=== PATIENT | female | born 1985 ===

== ENCOUNTER 2017-01-22 12:22 | Emergency (ER) | payer MEDICAID, OTHER ==
[2017-01-22 12:34] VITALS: BMI 24.8
[2017-01-22 12:35] VITALS: TEMP 100.1
--- NOTE | 2017-01-22 13:02 | ED PDOC ---
Arrival/HPI - General Historian: Patient - General Chief Complaint: ENT Problem Time Seen by Provider: 01/22/17 12:43 - History of Present Illness Narrative History of Present Illness (Text): 01/22/17 12:58 31yo female present with complaint of sore throat and nasal congestion since last night. Denies fever but had a low grade temp in triage. Denies drooling, hoarseness, neck pain, ear pain, nausea, vomiting, cough, any other complaint. ( Sissy Goodwin A) Past Medical History - Provider Review Nursing Documentation Reviewed: Yes - Infectious Disease Hx of Infectious Diseases: None - Psychiatric Hx Substance Use: No - Anesthesia Hx Anesthesia: No Hx Anesthesia Reactions: No Hx Malignant Hyperthermia: No - Suicidal Assessment Feels Threatened In Home Enviroment: No Family/Social History - Physician Review Nursing Documentation Reviewed: Yes Family/Social History: Unknown Family HX Smoking Status: Current Some Days Smoker Hx Alcohol Use: No Hx Substance Use: No Allergies/Home Meds Allergies/Adverse Reactions: Allergies No Known Allergies Allergy (Verified 01/22/17 12:34) Review of Systems - Physician Review All systems were reviewed & negative as marked: Yes - Review of Systems Constitutional: Normal Eyes: Normal ENT: Sore Throat, Sinus Congestion Respiratory: Normal Cardiovascular: Normal Gastrointestinal: Normal Genitourinary Female: Normal Musculoskeletal: Normal Skin: Normal Neurological: Normal Endocrine: Normal Hemo/Lymphatic: Normal Psychiatric: Normal Physical Exam Vital Signs Reviewed: Yes Temperature: Febrile Blood Pressure: Normal Pulse: Regular Respiratory Rate: Normal Appearance: Positive for: Well-Appearing, Non-Toxic, Comfortable Pain Distress: None Mental Status: Positive for: Alert and Oriented X 3 - Systems Exam Head: Present: Atraumatic, Normocephalic Pupils: Present: PERRL Extroacular Muscles: Present: EOMI Conjunctiva: Present: Normal Mouth: Present: Moist Mucous Membranes Pharnyx: Present: ERYTHEMA. No: EXUDATE, TONSILS ENLARGED, Peritonsilar Swelling, Uvular Deviation, Muffled/Hoarse Voice, Strider, Soft Palate/Uvular Edema Nose (Internal): No: Engorged, Edematous, Boggy Neck: Present: Normal Range of Motion Respiratory/Chest: Present: Clear to Auscultation, Good Air Exchange. No: Respiratory Distress, Accessory Muscle Use Cardiovascular: Present: Regular Rate and Rhythm, Normal S1, S2. No: Murmurs Abdomen: Present: Normal Bowel Sounds. No: Tenderness, Distention, Peritoneal Signs Back: Present: Normal Inspection Upper Extremity: Present: Normal Inspection. No: Cyanosis, Edema Lower Extremity: Present: Normal Inspection. No: Edema Neurological: Present: GCS=15, CN II-XII Intact, Speech Normal Skin: Present: Warm, Dry, Normal Color. No: Rashes Psychiatric: Present: Alert, Oriented x 3, Normal Insight, Normal Concentration Vital Signs Temp Pulse Resp BP Pulse Ox 01/22/17 12:35 100.1 F H 105 H 16 120/80 96 Medical Decision Making ED Course and Treatment: I was available for consultation during PA evaluation. The chart was reviewed by me, and I agree with disposition. The documented history was done by the physician bean roaster. The documented physical exam was done by the physician bean roaster. The documented procedures were done by the physician bean roaster. (Jose Arora) - Lab Interpretations Lab Results: Lab Results 01/22/17 13:17: Grp A Beta Strep Ag Negative - Medication Orders Current Medication Orders: Acetaminophen (Tylenol 325mg Tab) 650 mg PO STAT STA Stop: 01/22/17 13:45 Loratadine (Claritin) 10 mg PO ONCE ONE Stop: 01/22/17 13:45 Disposition/Present on Arrival - Present on Arrival Any Indicators Present on Arrival: No History of DVT/PE: No History of Uncontrolled Diabetes: No Urinary Catheter: No History of Decub. Ulcer: No History Surgical Site Infection Following: None - Disposition Have Diagnosis and Disposition been Completed?: Yes Disposition Time: 13:50 Patient Plan: Discharge - Disposition Diagnosis: Sore throat, Nasal congestion Disposition: HOME/ ROUTINE Condition: STABLE Discharge Instructions (ExitCare): Cold Symptoms (ED) Additional Instructions: Take medication as directed Follow up with your Doctor Return to ED for any new or worsening symptoms Prescriptions: Loratadine/Pseudoephedrine [Claritin-D 24 Hour Tablet] 1 each PO DAILY #30 tab.er.24h Benzocaine/Menthol [Sore Throat Lozenge] 1 each MM BID #30 lozenge
[2017-01-22 14:22] VITALS: BP 118/69; PULSE 98; RESP 18; O2SAT 98
== END 2017-01-22 14:25 | disposition home or self-care (01) ==
LOC: ED 12:22
DX: J02.9 Acute pharyngitis, unspecified (principal); R09.81 Nasal congestion; Z72.0 Tobacco use